=== PATIENT | female | born 1960 | race Caucasian/White ===

== ENCOUNTER 2017-05-25 09:16 | Day surgery (SDC) | payer OTHER, MEDICARE, MEDICAID ==
[2017-05-22 13:36] VITALS: BMI 27.4
[2017-05-25] MEDS ORDERED: Phenylephrine 10 mg/ml Inj ONE (11:15)
[2017-05-25] MEDS ORDERED: Iohexol 350mgl/ml 50 ML ONE (11:15)
[2017-05-25] MEDS ORDERED: Iodixanol 320 MG/ML 200 ML BOTTLE IV ONE (11:15)
[2017-05-25] MEDS ORDERED: Lidocaine 2% Inj (20ml) ONE ×2 (11:16→12:55)
[2017-05-25] MEDS ORDERED: Nitroglycerin 50mg in D5W 0 MG/0 ML BOTTLE IV ONE (11:16)
[2017-05-25] MEDS ORDERED: Iodixanol 320 MG/ML 100 ML BOTTLE IV ONE ×3 (11:17→12:41)
[2017-05-25] MEDS ORDERED: Midazolam 2 MG/2 ML VIAL ONE (11:22)
[2017-05-25] MEDS ORDERED: Iohexol 350 MG/100 ML VIAL ONE (12:26)
[2017-05-25 14:27] VITALS: RESP 18; TEMP 98.2
[2017-05-25 15:48] VITALS: BP 146/66; PULSE 80
--- NOTE | 2017-05-25 17:44 | CARD ---
APPROVED REPORT EKG Measurement Heart [id number] <Conclusion> Normal sinus rhythm Left axis deviation Prolonged QT Abnormal ECG
--- NOTE | 2017-05-27 21:12 | CARDCATH ---
PROCEDURE DATE: 05/25/2017 PROCEDURES: 1. Left circumflex balloon angioplasty and drug-eluting stent placement. 2. Obtuse marginal 1 artery balloon angioplasty and drug-eluting stent placement. 3. Left anterior descending coronary artery balloon angioplasty and drug-eluting stent placement. 4. Radiological supervision and radiological interpretation of the coronary angiogram and coronary intervention. REFERRING PHYSICIAN: Zak Henley MD PERFORMING PHYSICIAN: Matthew Kaplan MD CLINICAL INDICATIONS: 1. Severe symptomatic aortic stenosis. The patient for TAVR evaluation. 2. Coronary artery disease with multivessel involvement. 3. Chronic renal failure on hemodialysis. 4. Bilateral above knee amputation. 5. Hypertension. 6. Hyperlipidemia. 7. Diabetes. 8. Severe pulmonary hypertension. PROCEDURE: After informed consent the patient was prepped and draped in usual sterile fashion. A 2% lidocaine was given in the left groin for local anesthesia. Using micropuncture technique, a 6-Marshallese sheath was introduced into the left common femoral artery. The patient was preloaded with aspirin, Plavix, and IV heparin. ACT was maintained above 250, throughout the procedure. XBLAD 3.5, 6-Marshallese guided catheter engaged into left main coronary artery. Contrast injected and left coronary angiogram was performed. The patient has a mid left anterior descending 80% stenosis. Left circumflex has 95% stenosis. Obtuse marginal 1 has 85% stenosis. Left circumflex lesion was pre-dilated using 2.5 x 8 compliant balloon. Stented with 2.75 x 12 Xience Alpine drug-eluting stent. Left anterior descend coronary artery lesion pre-dilated using 2.5 x 15 compliant balloon. Stented with 3.5 x 23 Xience Alpine drug-eluting stent. Obtuse marginal 1 lesion was pre-dilated using 2.5 x 15 compliant balloon, but due to tortuosity it was difficult to advance the stents. Again, the lesion was pre-dilated using 2.5 x 15 non-compliant balloon this time. However, due to difficulty of diluting the stent, guideliner was used. After the guideliner placement stent was delivered. A 2.5 x 23 Xience Alpine stent deployed with excellent final angiographic results. Post to multivessel PCI, final angiogram has revealed adequacy dilated stents with excellent TIMI3 flow. CONCLUSION: 1. Successful multivessel PCI with drug-eluting stent placement. 2. Post DS management. 3. The patient will be referred for TAVR evaluation. Matthew Kaplan MD
== END 2017-05-25 16:30 | disposition short-term general hospital (02) ==
LOC: CATH 09:16 → 2RSO 13:28 → CATH 16:30
PROVIDERS: ATTEND Internal Medicine Cardiovascular Disease
DX: I35.0 Nonrheumatic aortic (valve) stenosis (principal); I25.10 Atherosclerotic heart disease of native coronary artery without angina pectoris; N18.6 End stage renal disease; I12.0 Hypertensive chronic kidney disease with stage 5 chronic kidney disease or end stage renal disease; E11.22 Type 2 diabetes mellitus with diabetic chronic kidney disease; I27.20 Pulmonary hypertension, unspecified; Z99.2 Dependence on renal dialysis; E78.5 Hyperlipidemia, unspecified; Z89.611 Acquired absence of right leg above knee; Z89.612 Acquired absence of left leg above knee
CPT/HCPCS: 85175; 93005; 99152; 99153; C1725 ×5; C1760; C1769 ×2; C1874 ×2; C1887 ×2; C1894; C9600; C9601; J1644; J2250; J3010; J7030; Q9967 ×2